=== PATIENT | female | born 1950 | race Caucasian/White ===

== ENCOUNTER 2017-03-05 13:24 | Observation (INO) | payer BC, MEDICARE, OTHER ==
--- NOTE | 2017-03-05 13:35 | ER Document Report ---
ED Medical Screen (RME) - General Chief Complaint: S/S of Possible Stroke Stated Complaint: ALTERED MENTAL STATUS Time Seen by Provider: 03/05/17 13:32 Mode of Arrival: Ambulatory Information source: Patient, Relative TRAVEL OUTSIDE OF THE [place] IN LAST 30 DAYS: No - HPI Patient complains to provider of: memory loss Onset: This morning - pt states she had no recollection of what she did this am (new for her) -- she denies extremity numbness or weakness, speech change, etc - Related Data Allergies/Adverse Reactions: risedronate sodium [From Actonel] Allergy (Verified 03/05/17 13:32) steriods Allergy (Uncoded 03/05/17 13:32) Past Medical History Renal/ Medical History: Denies: Hx Peritoneal Dialysis Past Surgical History: Reports: Hx Gynecologic Surgery Physical Exam - Vital signs Vitals: Temp Pulse Resp BP Pulse Ox 98.0 F 82 16 158/93 H 99 03/05/17 13:28 03/05/17 13:28 03/05/17 13:28 03/05/17 13:28 03/05/17 13:28 Course - Vital Signs Vital signs: Temp Pulse Resp BP Pulse Ox 98.0 F 82 16 158/93 H 99 03/05/17 13:28 03/05/17 13:28 03/05/17 13:28 03/05/17 13:28 03/05/17 13:28
[2017-03-05 14:11] LABS: ABSOLUTE MONOCYTES (AUTO) 0.5 10^3/uL (0.1-1.4); BASOPHILS % (AUTO) 0.4 % (0-2); EOSINOPHILS % (AUTO) 0.4 % (0-6); HEMATOCRIT 45.9 % (36.0-47.0); HEMOGLOBIN 15.1 g/dL (12.0-15.5); HGB HCT DIFFERENCE -0.6; LYMPHOCYTES % (AUTO) 12.2 % (13-45); MEAN CORPUSCULAR HEMOGLOBIN 30.3 pg (27.0-33.4); MEAN CORPUSCULAR VOLUME 92 fl (80-97); MONOCYTES % (AUTO) 5.4 % (3-13); RED CELL DISTRIBUTION WIDTH 13.3 % (11.5-14.0); SEGMENTED NEUTROPHILS % (AUTO) 81.6 % (42-78); WHITE BLOOD COUNT 8.6 10^3/uL (4.0-10.5)
--- NOTE | 2017-03-05 14:12 | ER Document Report ---
ED Neuro Symptoms/Deficit - General Chief Complaint: S/S of Possible Stroke Stated Complaint: ALTERED MENTAL STATUS Time Seen by Provider: 03/05/17 13:32 Mode of Arrival: Ambulatory Information source: Patient, Relative - spouse/daughter TRAVEL OUTSIDE OF THE [place] IN LAST 30 DAYS: No - HPI Patient complains to provider of: Other - Memory loss from [id number]. Memory has since returned. Now starting to have a mild/dull BAUM Onset: Just prior to arrival Awoke with symptoms: No Exact time of onset: 929 Duration: Gone now - resolved Quality of pain: Dull - start of BAUM Severity: Mild Pain Level: 1 Context: None Loss of consciousness: No loss of consciousness Was STROKE ALERT Called: No Baseline Cognitive: Alert, oriented X 3 Baseline Gait: Walks w/o assistance Pre-existing weakness: No: Face, General, Hand, Lower extremity, Upper extremity Alert To: Name/Voice Patient Orientation: Person, Place, Time, Events Character of altered mental status: No: Agitated, Confused, Combative, Decreased responsiveness, Disoriented, Seizure activity, Trouble concentrating, Unchanged from baseline, Unresponsive New weakness: denies: LUE, LLE, RUE, RLE, L facial, R facial, General (diffuse) Altered sensation: denies: LUE, LLE, RUE, RLE, L facial, R facial, General ( diffuse) Decreased ability to stand/walk: denies: Weak, Difficult, Off balance, Cannot walk, Cannot stand Vision problem/glaucoma: Yes - h/o glaucoma Associated symptoms: Headache. denies: Chest pain, Back pain, Chills, Dizzy, Falling injury, Fainting, Fever, Hurts to breathe, Involuntary movements, Lightheadedness, Nausea, Neck pain, Seizure, Short of breath, Sweaty, Vomiting, Other Similar symptoms previously: No Recently seen / treated by doctor: No Notes: Patient is a 66-year-old female with a history of ovarian cancer (in remission 2000), migraines, and glaucoma who presents to the ED with a period of memory loss prior to arrival. Patient is accompanied by her spouse and her daughter. Spouse states that from 0 932 about 1245 this morning patient was confused and could not remember things that she should have known. During that time, they did not notice any changes or slurring her speech, but she would get agitated easily because of the confusion. By 1245, her memory issues resolved and she was able to remember everything. Patient never had any trouble with her gait, nor did she experience any muscle weakness or paralysis. Patient states that now she is developing a dull headache. She denies any previous incidences with memory loss. She denies taking any p.o. medications, illicit drugs, or recent illness. Denies any trauma or fall. Denies any insect bite. Patient states that she has had a total hysterectomy and an appendectomy. No other surgical history. Denies any history of CVA, ID, diabetes, TIA, PE. Patient states that currently she feels well without any other concerns or complaints. - Related Data Allergies/Adverse Reactions: risedronate sodium [From Actonel] Allergy (Verified 03/05/17 13:32) steriods Allergy (Uncoded 03/05/17 13:32) Home Medications: Current Home Medications Aspirin/Acetaminophen/Caffeine [Excedrin Migraine Caplet] 1 tab-cap PO DAILY PRN 03/05/17 [History] Bimatoprost [Lumigan 0.01% Oph Soln 2.5 ml/Bottle] 1 drop BTH_EYE DAILY [History] Past Medical History - General Information source: Patient, Relative - Social History Smoking Status: Never Smoker Chew tobacco use (# tins/day): No Frequency of alcohol use: None Drug Abuse: None Family History: Reviewed & Not Pertinent Renal/ Medical History: Denies: Hx Peritoneal Dialysis Past Surgical History: Reports: Hx Cardiac Catheterization, Hx Gynecologic Surgery Review of Systems - Review of Systems Notes: REVIEW OF SYSTEMS: CONSTITUTIONAL : Denies fever, chills, or sweats. Denies recent illness. EENT: Denies eye, ear, throat, or mouth pain or symptoms. Denies nasal or sinus congestion or discharge. Denies throat, tongue, or mouth swelling or difficulty swallowing. CARDIOVASCULAR: Denies chest pain. Denies palpitations or racing or irregular heart beat. Denies ankle edema. RESPIRATORY: Denies cough, cold, or chest congestion. Denies shortness of breath, difficulty breathing, or wheezing. GASTROINTESTINAL: Denies abdominal pain or distention. Denies nausea, vomiting , or diarrhea. Denies blood in vomitus, stools, or per rectum. Denies black, tarry stools. Denies constipation. GENITOURINARY: Denies difficulty urinating, painful urination, burning, frequency, blood in urine, or discharge. MUSCULOSKELETAL: Denies back or neck pain or stiffness. Denies joint pain or swelling. SKIN: Denies rash, lesions or sores. HEMATOLOGIC : Denies easy bruising or bleeding. LYMPHATIC: Denies swollen, enlarged glands. NEUROLOGICAL: see hpi. Denies passing out or loss of consciousness. Denies dizziness or lightheadedness. Denies weakness or paralysis or loss of use of either side. Denies problems with gait or speech. Denies sensory loss, numbness, or tingling. Denies seizures. PSYCHIATRIC: Denies anxiety or stress. Denies depression, suicidal ideation, or homicidal ideation. ALL OTHER SYSTEMS REVIEWED AND NEGATIVE. Dictation was performed using [employer] voice recognition software Physical Exam - Vital signs Vitals: Temp Pulse Resp BP Pulse Ox 98.0 F 82 16 158/93 H 99 03/05/17 13:28 03/05/17 13:28 03/05/17 13:28 03/05/17 13:28 03/05/17 13:28 Notes: PHYSICAL EXAMINATION: GENERAL: Well-appearing, well-nourished and in no acute distress. A&Ox3 HEAD: Atraumatic, normocephalic. Non-tender. No garza sign EYES: Pupils equal round and reactive to light, extraocular movements intact, sclera anicteric, conjunctiva are normal. No raccoon eyes/entrapment ENT: TM's unremarkable w/o hemotympanum. Nares patent and without discharge. oropharynx clear without exudates. No tonsilar hypertrophy or erythema. Moist mucous membranes. No sinus tenderness. NECK: Normal range of motion, supple without lymphadenopathy. No rigidity. No midline tenderness. Spurling negative. Chest: No flail chest. equal rise/fall. Non-tender LUNGS: Breath sounds clear to auscultation bilaterally and equal. No wheezes rales or rhonchi. HEART: Regular rate and rhythm without murmurs, rubs, gallops. ABDOMEN: Soft, nontender, nondistended abdomen. No guarding, no rebound. No masses appreciated. Normal bowel sounds present. No CVA tenderness bilaterally. Musculoskeletal: Ext b/l: FROM to passive/active. Strength 5+/5. No deficits noted. No bony tenderness of extremities. Back: FROM to passive/active. Strength 5+/5. No vertebral point tenderness, stepoffs, or deformities. No other bony tenderness or ecchymosis. Extremities: No cyanosis, clubbing, or edema b/l. Peripheral pulses 2+. Capillary refill less than 2 seconds. NEUROLOGICAL: MMSE intact. Cranial nerves grossly intact. Normal speech, normal gait. Normal sensory, motor exams. Reflexes 2+ b/l. ROD's negative. Pronator drift negative. Heel/montoya, finger/nose wnl. Walking on heels/toes and heel to toe wnl. PSYCH: Normal mood, normal affect. SKIN: Warm, Dry, normal turgor, no rashes or lesions noted. Course - Re-evaluation Re-evalutation: 03/05/17 19:05 Patient is an afebrile, well-hydrated, 66-year-old female who presents to the ED with memory loss, suspect possible TIA vs seizure. Reviewed case with Dr. Jiménez who is in agreement with admit/plan. Patient's workup (CBC, CMP, Mag , UA, Urine drug, CT head, cardiac enzymes, CXR) was currently unremarkable for any acute pathology. Vitals are stable. PE otherwise unremarkable for any focal neurological deficits. Patient has no new concerns or complaints at this time. Reviewed case with the hospitalist, Dr. Chowdhury, who accepted the patient, and will perform a further evaluation. Patient is in agreement with admit/plan. - Vital Signs Vital signs: Temp Pulse Resp BP Pulse Ox 98.0 F 82 16 158/93 H 99 03/05/17 13:28 03/05/17 13:28 03/05/17 13:28 03/05/17 13:28 03/05/17 13:28 - Laboratory Result Diagrams: 03/05/17 13:55 03/05/17 15:18 ED NIH Stroke Scale - NIH Stroke Scale When completed:: Protocol *: 1. NIH scale should be completed with appropriate accompanying assessment tools. *: 2. The NIH should reflect what the patient is capable of doing and should not be coached by the clinician. 1a. Level of Consciousness: 0=Alert;keenly responsive -: 1=Drowsy -: 2=Obtunded -: 3=Coma/unresponsive or reflex to noxious stimuli. 1a. Responses: 0 1b. Orientation Questions: a. What month is it? -: b. How old are you? -: 0=Answers both questions correctly. -: 1=Answers one question correctly or patient is intubated or has orotracheal trauma. -: 2=Answers neither question correctly. 1b. Responses: 0 1c. Response to commands: a. Open and close eyes? -: b. Hand Clipper and release hand? -: Credit is given despite weakness. Demonstration of task is permitted. Substitute command if hands cannot be used. -: 0=Performs both tasks correctly -: 1=Performs one task correctly -: 2=Performs neither task correctly 1c. Responses: 0 2. Gaze: Establish eye contact and instruct patient to "Follow my finger" -: 0=Normal -: 1=Partial gaze palsy. Gaze is abnormal in one or both eyes, but where forced deviation or total gaze paresis is not present. -: 2=Forced deviation or total gaze paresis. 2. Responses: 0 3. Visual Scherer: Sees fingers in all four quadrants. -: 0=No visual loss. -: 1=Partial hemianopsia. -: 2=Complete hemianopsia. -: 3=Bilateral hemianopsia (including Cortical blindness) 3. Responses: 0 4. Facial Movement: Instruct patient to: -: a. Show me your teeth -: b. Raise your eyebrows -: c. Close your eyes -: d. Smile -: 0=Normal symmetrical movement -: 1=Minor paralysis (flattened nasolabial fold, asymmetry on smiling). -: 2=Partial paralysis (total or near total paralysis of lower face). -: 3=Complete paralysis of upper and lower face 4. Responses: 0 5. Motor functions (left arm): Alternate sides and extend each arm with palms down (90 degrees if sitting or 45 degrees for supine). -: 0=No drift;limb holds for full 10 seconds. -: 1=Drift; limb holds but drifts down before full 10 seconds, but does not hit bed. -: 2=Some effort against gravity; limb cannot get to or maintain position. -: 3=No effort against gravity; limb falls. -: 4=No movement. -: UN=Amputation, joint fusion, explain in comments. 5. Responses (left arm): 0 5. Motor Functions (right arm): Alternate sides and extend each arm with palms down (90 degrees if sitting or 45 degrees for supine). -: 0=No drift;limb holds for full 10 seconds. -: 1=Drift; limb holds but drifts down before full 10 seconds, but does not hit bed. -: 2=Some effort against gravity; limb cannot get to or maintain position. -: 3=No effort against gravity; limb falls. -: 4=No movement. -: UN=Amputation, joint fusion, explain in comments. 5. Responses (right arm): 0 6. Motor Functions (left leg): With patient lying supine, alternate sides and extend each leg (30 degrees always while supine). -: 0=No drift, leg holds position for full 5 seconds -: 1=Drift; leg falls before full 5 seconds but does not hit bed. -: 2=Some effort against gravity, leg falls to bed but some effort against gravity. -: 3=No effort against gravity, leg falls to bed immediately. -: 4=No movement. -: UN=Amputation, joint fusion; explain in comments. 6. Responses (left leg): 0 6. Motor Functions (right leg): With patient lying supine, alternate sides and extend each leg (30 degrees always while supine). -: 0=No drift, leg holds position for full 5 seconds -: 1=Drift; leg falls before full 5 seconds but does not hit bed. -: 2=Some effort against gravity, leg falls to bed but some effort against gravity. -: 3=No effort against gravity, leg falls to bed immediately. -: 4=No movement. -: UN=Amputation, joint fusion; explain in comments. 6. Responses (right leg): 0 7. Limb Ataxia: With eyes open instruct patient to: -: a. "Touch your finger to your nose". -: b. "Touch your heel to your montoya" -: 0=Absent -: 1=Present in one limb. -: 2=Present in two limbs. -: UN=Amputation or joint fusion; explain in comments. 7. Responses: 0 8. Sensory: Test sensation using pinprick or noxious stimuli. Test as many body parts as possible. -: 0=Normal;no sensory loss -: 1=Mile to moderate sensory loss (patient feels pin prick but is less sharp on affected side). -: 2=Severe or total sensory loss. 8. Responses: 0 9. Best Language: Instruct patient to: -: a. "Describe what you see in this picture." -: b. "Name the items in this picture." -: c. "Read these sentences." -: 0=No aphasia, normal -: 1=Mild to moderate aphasia. -: 2=Severe aphasia -: 3=Mute, global aphasia, no usable speech or auditory comprehension. 9. Responses: 0 10. Articulation, Dysarthia: Instruct patient to: -: "Read these words" or "Repeat these words" -: 0=Normal -: 1=Mild to moderate; patient may slur some words but can be understood without difficulty. -: 2=Severe; patients speech so slurred as to be unintelligible in the absence of dysphasia. -: UN=Intubated or other physical barrier, explain in comments. 10. Responses: 0 11. Extinction or inattention: 0=No abnormality -: 1= Visual, tactile, auditory, spatial, or personal inattention or extinction to bilateral simulation in one or the sensory modalities. -: 2=Profound haseeb-inattention or haseeb-inattention to more than one modality; does not recognize own hand. 11. Responses: 0 Total Score: 0 Discharge - Discharge Clinical Impression: Memory loss of unknown cause Condition: Stable Disposition: ADMITTED INPATIENT Admitting Provider: Hospitalist - Dr. Chowdhury Unit Admitted: Telemetry
[2017-03-05 14:50] LABS: APPEARANCE,URINE CLEAR; BILIRUBIN,URINE NEGATIVE (NEGATIVE); GLUCOSE, URINE NEGATIVE (NEGATIVE); KETONES,URINE NEGATIVE (NEGATIVE); LEUKOCYTE ESTERASE,URINE NEGATIVE (NEGATIVE); NITRITE,URINE NEGATIVE (NEGATIVE); PROTEIN,URINE NEGATIVE (NEGATIVE); URINE SPECIFIC GRAVITY 1.016; UROBILINOGEN,URINE NEGATIVE mg/dL (<2.0)
[2017-03-05 15:07] LABS: URINE BARBITURATES SCREEN NEGATIVE; URINE METHADONE SCREEN NEGATIVE; URINE OPIATES LOW NEGATIVE; URINE PHENCYCLIDINE SCREEN NEGATIVE
--- NOTE | 2017-03-05 15:11 | RADIOLOGY REPORT (SQ) ---
EXAM DESCRIPTION: CT HEAD WITHOUT COMPLETED DATE/TIME: 03/05/2017 3:00 pm REASON FOR STUDY: mental status change COMPARISON: None. TECHNIQUE: Axial images acquired through the brain without intravenous contrast. Images reviewed wi th bone, brain and subdural windows. Images stored on PACS. All CT scanners at this facility use dose modulation, iterative reconstruction, and/or weight based d osing when appropriate to reduce radiation dose to as low as reasonably achievable (ALARA). [facility]: Dose Right [facility]: CareDose [facility]: Dose Right [facility]: Teradose 4D [facility]: Smart Fididel RADIATION DOSE: Up-to-date CT equipment and radiation dose reduction techniques were employed. CTDIv ol: 64.6 mGy. DLP: 1163 mGy-cm. mGy. LIMITATIONS: None. FINDINGS: VENTRICLES: Normal size and contour. CEREBRUM: No masses. No hemorrhage. No midline shift. No evidence for acute infarction. Normal gra y/white matter differentiation. No areas of low density in the white matter. CEREBELLUM: No masses. No hemorrhage. No alteration of density. No evidence for acute infarction. EXTRAAXIAL SPACES: No fluid collections. No masses. ORBITS AND GLOBE: No intra- or extraconal masses. Normal contour of globe without masses. CALVARIUM: No fracture. PARANASAL SINUSES: No fluid or mucosal thickening. SOFT TISSUES: No mass or hematoma. OTHER: No other significant finding. IMPRESSION: NORMAL BRAIN CT WITHOUT CONTRAST. COMMENT: Quality ID # [id number]: Final reports with documentation of one or more dose reduction techniques (e.g., Automated exposure control, adjustment of the mA and/or kV according to patient size, use of iterative reconstruction technique) TECHNICAL DOCUMENTATION: JOB ID: [id number]- All Rights Reserved
--- NOTE | 2017-03-05 15:35 | RADIOLOGY REPORT (SQ) ---
EXAM DESCRIPTION: CHEST SINGLE VIEW COMPLETED DATE/TIME: 03/05/2017 2:56 pm REASON FOR STUDY: AMS COMPARISON: 2014. NUMBER OF VIEWS: One view. TECHNIQUE: Single frontal radiographic view of the chest acquired. LIMITATIONS: None. FINDINGS: LUNGS AND PLEURA: No opacities, masses or pneumothorax. No pleural effusion. MEDIASTINUM AND HILAR STRUCTURES: No masses. Contour normal. HEART AND VASCULAR STRUCTURES: Heart normal in size. Normal vasculature. BONES: No acute findings. HARDWARE: None in the chest. OTHER: No other significant finding. IMPRESSION: NO SIGNIFICANT RADIOGRAPHIC FINDING IN THE CHEST. TECHNICAL DOCUMENTATION: JOB ID: [id number] [employer]- All Rights Reserved
[2017-03-05 15:48] LABS: PROTHROMBIN TIME 12.8 SEC (11.4-15.4)
[2017-03-05 15:49] LABS: PARTIAL THROMBOPLASTIN TIME 27.1 SEC (23.5-35.8)
[2017-03-05 15:53] LABS: ALANINE AMINOTRANSFERASE 26 U/L (9-52); ALBUMIN 4.2 g/dL (3.5-5.0); ALKALINE PHOSPHATASE 101 U/L (38-126); ANION GAP 13 (5-19); ASPARTATE AMINO TRANSFERASE 20 U/L (14-36); BILIRUBIN,DIRECT 0.3 mg/dL (0.0-0.4); BILIRUBIN,TOTAL 0.5 mg/dL (0.2-1.3); BLOOD UREA NITROGEN 21 mg/dL (7-20); CALCIUM 9.8 mg/dL (8.4-10.2); CARBON DIOXIDE 24 mmol/L (22-30); CHLORIDE 107 mmol/L (98-107); CREATINE KINASE 84 U/L (30-135); CREATININE RESULT 0.75 mg/dL (0.52-1.25); GLUCOSE 106 mg/dL (75-110); POTASSIUM 4.2 mmol/L (3.6-5.0); SODIUM 143.5 mmol/L (137-145); TOTAL PROTEIN 6.9 g/dL (6.3-8.2)
[2017-03-05 16:05] LABS: TROPONIN I < 0.012 ng/mL
[2017-03-05] MEDS ORDERED: NORMAL SALINE 1000 ML 1,000 ML IV ONE (16:19)
[2017-03-05] MEDS ORDERED: ONDANSETRON 4 MG TAB.RAPDIS PO PRN (17:38)
[2017-03-05] MEDS ORDERED: ACETAMINOPHEN 325 MG TABLET PO PRN (17:38)
[2017-03-05] MEDS ORDERED: [UNRECOGNIZED DRUG - OTHER] PO PRN (17:46)
[2017-03-05] MEDS ORDERED: CAFFEINE PO PRN (17:46)
[2017-03-05] MEDS ORDERED: ASPIRIN PO PRN (17:46)
[2017-03-05] MEDS ORDERED: ACETAMINOPHEN PO PRN (17:46)
--- NOTE | 2017-03-05 18:31 | PDOC H&P ---
History of Present Illness Admission Date/PCP: 03/05/17 17:23 Patient complains of: Confusion History of Present Illness: ANETTE THOMPSON is a 66 year old female presents with complaint of episode of confusion. Patient reports that she woke up this morning and went to the grocery store where she purchased food. Patient states that when she got home she was carrying in groceries bags in place and purchased items into cabinet. Patient states that approximately around 10:00 she does not remember the events that occurred. Patient states that her reported that she was tearing out the back door and then he reports that she walked outside and played with a neighbor's dog. Family also reported that patient came back into the house and asked if they have a dog. Patient reports that they have had a dog for the last several years who sleeps in bed with them. Patient also reports the family stated that she then took a shower. Patient reports that family denies any change in speech or gait. Patient did report that she did have a migraine earlier that day and took Excedrin Migraine. Patient states that she caught her migraine early and she does have a long history of having migraines. Patient reports that she has never had an episode like this when having a migraine. Past Medical History Cardiac Medical History: Reports: Other - Ovarian Cancer Glaucoma Pulmonary Medical History: Reports: None EENT Medical History: Reports: None Neurological Medical History: Reports: Migraine Endocrine Medical History: Reports: None Renal/ Medical History: Reports: None Malignancy Medical History: Reports: Ovarian Cancer - Status post chemo and surgery GI Medical History: Reports: None Musculoskeltal Medical History: Reports: None Skin Medical History: Reports: None Psychiatric Medical History: Reports: None Traumatic Medical History: Reports: None Hematology: Reports: None Infectious Medical History: Reports: None Past Surgical History Past Surgical History: Reports: Cardiac Catheterization, Hysterectomy, Tonsillectomy Social History Smoking Status: Never Smoker Family History Family History: Reviewed & Not Pertinent Parental Family History Reviewed: Yes Children Family History Reviewed: Yes Sibling(s) Family History Reviewed.: Yes Medication/Allergy Home Medications: Aspirin/Acetaminophen/Caffeine [Excedrin Migraine Caplet] 1 tab-cap PO DAILY PRN 03/05/17 Bimatoprost [Lumigan 0.01% Oph Soln 2.5 ml/Bottle] 1 drop BTH_EYE DAILY Allergies/Adverse Reactions: risedronate sodium [From Actonel] Allergy (Verified 03/05/17 13:32) steriods Allergy (Uncoded 03/05/17 13:32) Review of Systems Constitutional: ABSENT: chills, fever(s), headache(s), weight gain, weight loss Eyes: ABSENT: visual disturbances Ears: ABSENT: hearing changes Cardiovascular: ABSENT: chest pain, dyspnea on exertion, edema, orthropnea, palpitations Respiratory: ABSENT: cough, hemoptysis Gastrointestinal: ABSENT: abdominal pain, constipation, diarrhea, hematemesis, hematochezia, nausea, vomiting Genitourinary: ABSENT: dysuria, hematuria Musculoskeletal: ABSENT: joint swelling Integumentary: ABSENT: rash, wounds Neurological: PRESENT: memory loss, other - Headache Psychiatric: ABSENT: anxiety, depression, homidical ideation, suicidal ideation Endocrine: ABSENT: cold intolerance, heat intolerance, polydipsia, polyuria Hematologic/Lymphatic: ABSENT: easy bleeding, easy bruising Physical Exam Vital Signs: Temp Pulse Resp BP Pulse Ox 98.0 F 75 11 L 148/96 H 96 03/05/17 13:28 03/05/17 14:05 03/05/17 16:01 03/05/17 16:01 03/05/17 16:01 General appearance: PRESENT: no acute distress, well-developed, well-nourished Head exam: PRESENT: atraumatic, normocephalic Eye exam: PRESENT: conjunctiva pink, EOMI. ABSENT: scleral icterus Ear exam: PRESENT: normal external ear exam Mouth exam: PRESENT: moist, tongue midline Neck exam: ABSENT: carotid bruit, JVD, lymphadenopathy, thyromegaly Respiratory exam: PRESENT: clear to auscultation yeyo. ABSENT: rales, rhonchi, wheezes Cardiovascular exam: PRESENT: RRR. ABSENT: diastolic murmur, rubs, systolic murmur Pulses: PRESENT: normal dorsalis pedis pul Vascular exam: PRESENT: normal capillary refill GI/Abdominal exam: PRESENT: normal bowel sounds, soft. ABSENT: distended, guarding, mass, organolmegaly, rebound, tenderness Rectal exam: PRESENT: deferred Extremities exam: PRESENT: full ROM. ABSENT: calf tenderness, clubbing, pedal edema Musculoskeletal exam: PRESENT: ambulatory, deformity, dislocation, full ROM, normal inspection, tenderness, other Neurological exam: PRESENT: alert, awake, oriented to person, oriented to place , oriented to time, oriented to situation, CN II-XII grossly intact. ABSENT: motor sensory deficit Psychiatric exam: PRESENT: appropriate affect, normal mood. ABSENT: homicidal ideation, suicidal ideation Skin exam: PRESENT: dry, intact, warm. ABSENT: cyanosis, rash Results Impressions: Head CT 03/05/17 13:32 IMPRESSION: NORMAL BRAIN CT WITHOUT CONTRAST. Chest X-Ray 03/05/17 14:05 IMPRESSION: NO SIGNIFICANT RADIOGRAPHIC FINDING IN THE CHEST. Assessment & Plan - Diagnosis (1) Acute confusional state of metabolic origin Is this a current diagnosis for this admission?: Yes Plan: Patient reports that she had a migraine earlier today that she took Excedrin Migraine for. Patient reports having a loss of memory from 10-230. Patient could have had a complex migraine. However will do complete evaluation to rule out other causes. Will check MRI, carotids, 2D echo, and EEG. We will place consult for neurology. Check patient's lipid profile and TSH. (2) TIA (transient ischemic attack) Is this a current diagnosis for this admission?: Yes Plan: We will obtain MRI. TIA is most likely not the cause of patient's acute onset. Patient experienced no motor skill loss. Patient was ambulating and communicating with family but has no memory of conversations. (3) Memory loss of unknown cause Is this a current diagnosis for this admission?: Yes Plan: We will continue current evaluation the studies mentioned above. Think that patient's presentation is most likely secondary to complex migraine. (4) Migraine Qualifiers: Migraine type: unspecified Is this a current diagnosis for this admission?: Yes Plan: She reports that she had a migraine early this morning and took Excedrin Migraine. This is presentation could be consistent with complex migraine. (5) Essential hypertension Is this a current diagnosis for this admission?: Yes Plan: She reports that she does not have history of high blood pressure. Will monitor patient's blood pressure here during hospital stay. Blood pressure remains elevated will place on antihypertensives. (6) Ovarian cancer Qualifiers: Laterality: unspecified laterality Qualified Code(s): C56.9 - Malignant neoplasm of unspecified ovary Is this a current diagnosis for this admission?: Yes Plan: She has history of ovarian cancer that was treated. (7) DVT prophylaxis Is this a current diagnosis for this admission?: Yes Plan: SCDs - Time Time Spent: 30 to 50 Minutes
--- NOTE | 2017-03-05 20:16 | EKG REPORT ---
SEVERITY:- ABNORMAL ECG - SINUS RHYTHM NONSPECIFIC ST-T CHANGES- INFERIORLATERAL LEADS : Confirmed by: Porter Palmer MD 05-Mar-2017 20:16:02
--- NOTE | 2017-03-05 20:33 | RADIOLOGY REPORT (SQ) ---
EXAM DESCRIPTION: MRI HEAD WITHOUT COMPLETED DATE/TIME: 03/05/2017 6:39 pm REASON FOR STUDY: Altered Mental Status COMPARISON: Noncontrast head CT 03/05/2017 TECHNIQUE: Multiplanar imaging includes non-contrasted T1, T2, FLAIR, and Diffusion with ADC map seq uences. Images stored on PACS. LIMITATIONS: None. FINDINGS: ANATOMY: No anomalies. Normal vascular flow voids. Pituitary fossa normal. CSF SPACES: Normal in size and contour. No hemorrhage. CEREBRUM: A few high-signal intensity lesions scattered throughout the white matter on FLAIR imaging with distribution suggesting chronic micro-vascular ischemic change. Sulci and gyri normal in size a nd contour. No evidence of hemorrhage, mass or extraaxial fluid collection. POSTERIOR FOSSA: No signal alteration. No hemorrhage. No edema, masses or mass effect. Internal barb tory canals, cerebello-pontine angles, mastoids normal. DIFFUSION: Negative for acute or sub-acute infarction. ORBITS: No masses. Globes normal. PARANASAL SINUSES: No fluid levels. Mucosa normal. OTHER: No other significant finding. IMPRESSION: MINIMAL MICROVASCULAR ISCHEMIC CHANGE. OTHERWISE NORMAL STUDY. EVIDENCE OF ACUTE STROKE: NO. TECHNICAL DOCUMENTATION: JOB ID: [id number] [employer]- All Rights Reserved
[2017-03-05] MEDS: FAMOTIDINE 20 MG TABLET PO SCH (21:57)
[2017-03-06 05:04] LABS: ABSOLUTE EOSINOPHILS # (AUTO) 0.1 10^3/uL (0.0-0.6); ABSOLUTE LYMPHOCYTES (AUTO) 1.6 10^3/uL (0.5-4.7); ABSOLUTE MONOCYTES (AUTO) 0.5 10^3/uL (0.1-1.4); ABSOLUTE NEUT (AUTO) 3.4 10^3/uL (1.7-8.2); BASOPHILS % (AUTO) 0.6 % (0-2); EOSINOPHILS % (AUTO) 2.2 % (0-6); HEMATOCRIT 40.1 % (36.0-47.0); HEMOGLOBIN 13.8 g/dL (12.0-15.5); HGB HCT DIFFERENCE 1.3; LYMPHOCYTES % (AUTO) 27.9 % (13-45); MEAN CORPUSCULAR HEMOGLOBIN 31.2 pg (27.0-33.4); MEAN CORPUSCULAR HGB CONC 34.3 g/dL (32.0-36.0); MEAN CORPUSCULAR VOLUME 91 fl (80-97); MONOCYTES % (AUTO) 9.5 % (3-13); RED BLOOD COUNT 4.42 10^6/uL (3.72-5.28); RED CELL DISTRIBUTION WIDTH 13.5 % (11.5-14.0); SEGMENTED NEUTROPHILS % (AUTO) 59.8 % (42-78); WHITE BLOOD COUNT 5.6 10^3/uL (4.0-10.5)
[2017-03-06 05:15] LABS: ANION GAP 10 (5-19); BLOOD UREA NITROGEN 20 mg/dL (7-20); CALCIUM 9.2 mg/dL (8.4-10.2); CARBON DIOXIDE 27 mmol/L (22-30); CHLORIDE 107 mmol/L (98-107); CHOLESTEROL 190.62 mg/dL (0-200); CREATININE RESULT 0.75 mg/dL (0.52-1.25); Direct HDL 36 mg/dL (>40); GLUCOSE 97 mg/dL (75-110); SODIUM 143.5 mmol/L (137-145); TRIGLYCERIDES 68 mg/dL (<150)
[2017-03-06 05:26] LABS: DIRECT LDL 135 mg/dL (<100)
--- NOTE | 2017-03-06 08:07 | EKG REPORT ---
SEVERITY:- NORMAL ECG - SINUS RHYTHM : Confirmed by: Porter Palmer MD 06-Mar-2017 08:06:43
[2017-03-06] MEDS ORDERED: ASPIRIN 81 MG TABLET, CHEWABLE PO SCH (10:00)
[2017-03-06] MEDS ORDERED: BIMATOPROST 0.01% OPH SOLN 2.5 ML/BOTTLE OU SCH (10:00)
[2017-03-06] MEDS: FAMOTIDINE 20 MG TABLET PO SCH (10:28)
--- NOTE | 2017-03-06 11:58 | PDOC DISCHARGE SUMMARY ---
General - Admit/Disc Date/PCP Admission Date/Primary Care Provider: 03/05/17 17:38 Discharge Date: 03/06/17 - Discharge Diagnosis (1) Acute confusional state of metabolic origin Is this a current diagnosis for this admission?: Yes Summary: Most likely secondary to complex migraine. CT of head and MRI were normal. Patient never had any motor or speech deficits with this episode. (2) TIA (transient ischemic attack) Is this a current diagnosis for this admission?: Yes Summary: Ruled out. Most likely secondary to complex migraine. Patient recommended to take baby aspirin until pt has seen neuro (3) Memory loss of unknown cause Is this a current diagnosis for this admission?: Yes Summary: Most likely secondary to complex migraine. (4) Migraine Is this a current diagnosis for this admission?: Yes Summary: Complex migraine: Patient currently Migraine free. Patient told to continue using Excedrin Migraine as needed. (5) Essential hypertension Is this a current diagnosis for this admission?: Yes Summary: We will place patient on lisinopril 10 mg p.o. daily. Patient will need to follow-up with PCP. (6) Ovarian cancer Is this a current diagnosis for this admission?: Yes Summary: supportive care. Pt has completed treatment. (7) Hyperlipidemia Is this a current diagnosis for this admission?: Yes Summary: We will place patient on pravastatin 20 mg p.o. q. at bedtime. Patient will need to follow-up with PCP. Patient will need to have repeat lipid profile in 4 -6 weeks. - Additional Information Discharge Diet: Cardiac Discharge Activity: Activity As Tolerated Home Medications: Bimatoprost [Lumigan 0.01% Oph Soln 2.5 ml/Bottle] 1 drop OU QHS 03/05/17 Aspirin [Aspirin 81 mg Chewable Tablet] 81 mg PO DAILY tab.chew 03/06/17 Lisinopril 10 mg PO DAILY #30 tablet 03/06/17 Pravastatin Sodium 20 mg PO QHS #30 tablet 03/06/17 History of Present Illness History of Present Illness: ANETTE THOMPSON is a 66 year old female presents with complaint of episode of confusion. Patient reports that she woke up this morning and went to the grocery store where she purchased food. Patient states that when she got home she was carrying in groceries bags in place and purchased items into cabinet. Patient states that approximately around 10:00 she does not remember the events that occurred. Patient states that her reported that she was tearing out the back door and then he reports that she walked outside and played with a neighbor's dog. Family also reported that patient came back into the house and asked if they have a dog. Patient reports that they have had a dog for the last several years who sleeps in bed with them. Patient also reports the family stated that she then took a shower. Patient reports that family denies any change in speech or gait. Patient did report that she did have a migraine earlier that day and took Excedrin Migraine. Patient states that she caught her migraine early and she does have a long history of having migraines. Patient reports that she has never had an episode like this when having a migraine. Hospital Course Hospital Course: 66-year-old female that was admitted to the hospital due to memory loss. Patient had a CT and MRI that demonstrated no acute findings. Per patient and family patient had no speech or motor skill loss during episode. Patient had reported having a migraine earlier that day which she had taken medicine for. Patient was found to have essential hypertension at time of admission and therefore placed on lisinopril. Patient was also found to have mild hyperlipidemia and therefore was placed on statin. Patient was told that she would need to follow-up with neurology as outpatient. Patient was also told that she will need to see her PCP within 1 week and have 2D echo and carotid status outpatient. Patient was told to return if she experiences chest pain shortness of breath or confusion. Physical Exam Vital Signs: Temp Pulse Resp BP Pulse Ox 97.8 F 62 16 131/74 H 100 03/06/17 07:53 03/06/17 07:53 03/06/17 07:53 03/06/17 07:53 03/06/17 07:53 Intake & Output 03/05/17 03/06/17 03/07/17 06:59 06:59 06:59 Intake Total 600 Balance 600 Weight 70.9 kg General appearance: PRESENT: no acute distress, well-developed, well-nourished Head exam: PRESENT: atraumatic, normocephalic Eye exam: PRESENT: conjunctiva pink, EOMI. ABSENT: scleral icterus Ear exam: PRESENT: normal external ear exam Mouth exam: PRESENT: moist, tongue midline Neck exam: ABSENT: carotid bruit, JVD, lymphadenopathy, thyromegaly Respiratory exam: PRESENT: clear to auscultation yeyo. ABSENT: rales, rhonchi, wheezes Cardiovascular exam: PRESENT: RRR. ABSENT: diastolic murmur, rubs, systolic murmur Pulses: PRESENT: normal dorsalis pedis pul Vascular exam: PRESENT: normal capillary refill GI/Abdominal exam: PRESENT: normal bowel sounds, soft. ABSENT: distended, guarding, mass, organolmegaly, rebound, tenderness Rectal exam: PRESENT: deferred Extremities exam: PRESENT: full ROM. ABSENT: calf tenderness, clubbing, pedal edema Neurological exam: PRESENT: alert, awake, oriented to person, oriented to place , oriented to time, oriented to situation, CN II-XII grossly intact. ABSENT: motor sensory deficit Psychiatric exam: PRESENT: appropriate affect, normal mood. ABSENT: homicidal ideation, suicidal ideation Skin exam: PRESENT: dry, intact, warm. ABSENT: cyanosis, rash Results Laboratory Results: 03/06/17 04:26 03/06/17 04:26 03/06/17 03/06/17 04:26 04:26 WBC 5.6 RBC 4.42 Hgb 13.8 Hct 40.1 MCV 91 MCH 31.2 MCHC 34.3 RDW 13.5 Plt Count 173 Seg Neutrophils % 59.8 Lymphocytes % 27.9 Monocytes % 9.5 Eosinophils % 2.2 Basophils % 0.6 Absolute Neutrophils 3.4 Absolute Lymphocytes 1.6 Absolute Monocytes 0.5 Absolute Eosinophils 0.1 Absolute Basophils 0.0 Sodium 143.5 Potassium 4.0 Chloride 107 Carbon Dioxide 27 Anion Gap 10 BUN 20 Creatinine 0.75 Est GFR ( Amer) > 60 Est GFR (Non-Af Amer) > 60 Glucose 97 Calcium 9.2 Triglycerides 68 Cholesterol 190.62 LDL Cholesterol Direct 135 H VLDL Cholesterol 14.0 HDL Cholesterol 36 L Impressions: Head MRI 03/05/17 00:00 IMPRESSION: MINIMAL MICROVASCULAR ISCHEMIC CHANGE. OTHERWISE NORMAL STUDY. EVIDENCE OF ACUTE STROKE: NO. Head CT 03/05/17 13:32 IMPRESSION: NORMAL BRAIN CT WITHOUT CONTRAST. Chest X-Ray 03/05/17 14:05 IMPRESSION: NO SIGNIFICANT RADIOGRAPHIC FINDING IN THE CHEST.
[2017-03-06 12:23] VITALS: BP 131/72
== END 2017-03-06 12:40 | disposition home or self-care (01) ==
LOC: ER 13:24 → EH 17:23 → UNDOADMOB 17:23 → INTOOBSV 17:23 → EH 17:38 → 3N 18:57
DX: G45.9 Transient cerebral ischemic attack, unspecified (principal); R41.3 Other amnesia; G43.109 Migraine with aura, not intractable, without status migrainosus; I10 Essential (primary) hypertension; E78.5 Hyperlipidemia, unspecified; C56.9 Malignant neoplasm of unspecified ovary
CPT/HCPCS: 93005 ×2; 99285; 36415 ×2; 82553; 82550; 84443; 85025 ×2; 85610; 85730; 80048; 80053; 81001; 84484; 80307; 80061; 70551; 71010; 70450; 93010 ×2; G0378 ×3; A9270 ×3; J7030

== ENCOUNTER → 2017-03-17 | Outpatient (CLI) | payer OTHER ==
--- NOTE | 2017-03-17 14:08 | RADIOLOGY REPORT (SQ) ---
EXAM DESCRIPTION: CAROTID DOPPLER COMPLETED DATE/TIME: 03/17/2017 1:23 pm REASON FOR STUDY: AMNESIA R41.3 OTHER AMNESIA COMPARISON: None. TECHNIQUE: Grayscale ultrasound, Doppler velocity and spectra, and color Doppler images acquired of the extra-cranial carotid and vertebral arteries. Images stored on PACS. LIMITATIONS: None. FINDINGS: RIGHT CAROTID CCA Velocities: Within normal limits. ICA Velocities Peak systolic 87cm/s. End diastolic 34cm/s. Proximal ICA/CCA peak systolic ratio 1.03. Spectra normal. No significant plaque. LEFT CAROTID CCA Velocities: Within normal limits. ICA Velocities Peak systolic 103cm/s. End diastolic 41 cm/s. Proximal ICA/CCA peak systolic ratio 1.3. Spectra normal. No significant plaque. VERTEBRAL ARTERIES: Antegrade flow. Normal waveforms. SUBCLAVIAN ARTERIES: No finding. OTHER: No other significant finding. IMPRESSION: NO HEMODYNAMICALLY SIGNIFICANT STENOSIS. COMMENT: Quality ID #[id number]: Velocity criteria are extrapolated from the diameter data as defined by t he Society of Radiologists in Ultrasound Consensus Conference. Radiology 2003: 229; 340-346. TECHNICAL DOCUMENTATION: JOB ID: [id number] [employer]- All Rights Reserved
== END ==
LOC: SP 12:40
PROVIDERS: ATTEND Internal Medicine
DX: R41.3 Other amnesia (principal)
CPT/HCPCS: 93880

== ENCOUNTER 2017-04-06 19:11 | Emergency (ER) | payer OTHER ==
--- NOTE | 2017-04-06 19:53 | ER Document Report ---
ED Medical Screen (RME) - General Chief Complaint: Altered Mental Status Stated Complaint: POSSIBLE LOSS OF MEMORY Time Seen by Provider: 04/06/17 19:46 Notes: Patient presents had memory loss today after a stressful episode. They state that one month ago patient had a stressful episode and also had memory loss. Workup at that time was unremarkable. Family doctor has informed the patient that he does not believe it was due to a complex migraine or TIA but that he was going to refer her to neurology. TRAVEL OUTSIDE OF THE [place] IN LAST 30 DAYS: No - Related Data Allergies/Adverse Reactions: risedronate sodium [From Actonel] Allergy (Verified 04/06/17 19:17) steriods Allergy (Uncoded 03/05/17 13:32) Past Medical History Neurological Medical History: Reports: Hx Migraine Renal/ Medical History: Denies: Hx Peritoneal Dialysis Malignancy Medical History: Reports: Hx Ovarian Cancer - Status post chemo and surgery Psychiatric Medical History: Denies: Hx Depression Past Surgical History: Reports: Hx Cardiac Catheterization, Hx Gynecologic Surgery, Hx Hysterectomy, Hx Tonsillectomy Physical Exam - Vital signs Vitals: Temp Pulse Resp BP Pulse Ox 98.6 F 88 16 162/82 H 100 04/06/17 19:13 04/06/17 19:13 04/06/17 19:13 04/06/17 19:13 04/06/17 19:13 Course - Vital Signs Vital signs: Temp Pulse Resp BP Pulse Ox 98.6 F 88 16 162/82 H 100 04/06/17 19:13 04/06/17 19:13 04/06/17 19:13 04/06/17 19:13 04/06/17 19:13
--- NOTE | 2017-04-06 20:25 | RADIOLOGY REPORT (SQ) ---
EXAM DESCRIPTION: CT HEAD WITHOUT COMPLETED DATE/TIME: 04/06/2017 8:02 pm REASON FOR STUDY: ams COMPARISON: 03/05/2017 TECHNIQUE: Axial images acquired through the brain without intravenous contrast. Images reviewed wi th bone, brain and subdural windows. Images stored on PACS. All CT scanners at this facility use dose modulation, iterative reconstruction, and/or weight based d osing when appropriate to reduce radiation dose to as low as reasonably achievable (ALARA). [facility]: Dose Right [facility]: CareDose [facility]: Dose Right [facility]: Teradose 4D [facility]: [employer] RADIATION DOSE: Up-to-date CT equipment and radiation dose reduction techniques were employed. CTDIv ol: 64.6 mGy. DLP: 1163 mGy-cm. mGy. LIMITATIONS: None. FINDINGS: VENTRICLES: Normal size and contour. CEREBRUM: No masses. No hemorrhage. No midline shift. No evidence for acute infarction. Normal gra y/white matter differentiation. CEREBELLUM: No masses. No hemorrhage. No alteration of density. No evidence for acute infarction. EXTRAAXIAL SPACES: No fluid collections. No masses. ORBITS AND GLOBE: No intra- or extraconal masses. Normal contour of globe without masses. CALVARIUM: No fracture. PARANASAL SINUSES: No fluid or mucosal thickening. SOFT TISSUES: No mass or hematoma. OTHER: No other significant finding. IMPRESSION: No acute intracranial findings. EVIDENCE OF ACUTE STROKE: NO. COMMENT: Quality ID # [id number]: Final reports with documentation of one or more dose reduction techniques (e.g., Automated exposure control, adjustment of the mA and/or kV according to patient size, use of iterative reconstruction technique) TECHNICAL DOCUMENTATION: JOB ID: [id number]- All Rights Reserved
[2017-04-06 20:58] LABS: ABSOLUTE LYMPHOCYTES (AUTO) 1.2 10^3/uL (0.5-4.7); ABSOLUTE MONOCYTES (AUTO) 0.5 10^3/uL (0.1-1.4); ABSOLUTE NEUT (AUTO) 8.4 10^3/uL (1.7-8.2); BASOPHILS % (AUTO) 0.3 % (0-2); EOSINOPHILS % (AUTO) 0.1 % (0-6); HEMATOCRIT 45.2 % (36.0-47.0); HEMOGLOBIN 15.4 g/dL (12.0-15.5); LYMPHOCYTES % (AUTO) 12.2 % (13-45); MEAN CORPUSCULAR HEMOGLOBIN 30.8 pg (27.0-33.4); MEAN CORPUSCULAR VOLUME 90 fl (80-97); MONOCYTES % (AUTO) 4.8 % (3-13); RED CELL DISTRIBUTION WIDTH 13.3 % (11.5-14.0); SEGMENTED NEUTROPHILS % (AUTO) 82.6 % (42-78); WHITE BLOOD COUNT 10.2 10^3/uL (4.0-10.5)
[2017-04-06 21:03] LABS: APPEARANCE,URINE CLEAR; BILIRUBIN,URINE NEGATIVE (NEGATIVE); GLUCOSE, URINE NEGATIVE (NEGATIVE); KETONES,URINE NEGATIVE (NEGATIVE); LEUKOCYTE ESTERASE,URINE TRACE (NEGATIVE); NITRITE,URINE NEGATIVE (NEGATIVE); PROTEIN,URINE NEGATIVE (NEGATIVE); URINE SPECIFIC GRAVITY 1.004; UROBILINOGEN,URINE NEGATIVE mg/dL (<2.0)
[2017-04-06 21:04] LABS: ALANINE AMINOTRANSFERASE 34 U/L (9-52); ALBUMIN 4.9 g/dL (3.5-5.0); ALKALINE PHOSPHATASE 103 U/L (38-126); ANION GAP 16 (5-19); ASPARTATE AMINO TRANSFERASE 25 U/L (14-36); BILIRUBIN,DIRECT 0.3 mg/dL (0.0-0.4); BILIRUBIN,TOTAL 0.5 mg/dL (0.2-1.3); BLOOD UREA NITROGEN 27 mg/dL (7-20); CALCIUM 10.1 mg/dL (8.4-10.2); CARBON DIOXIDE 26 mmol/L (22-30); CHLORIDE 104 mmol/L (98-107); CREATININE RESULT 0.94 mg/dL (0.52-1.25); GLUCOSE 115 mg/dL (75-110); POTASSIUM 4.5 mmol/L (3.6-5.0); SODIUM 146.2 mmol/L (137-145); TOTAL PROTEIN 8.1 g/dL (6.3-8.2)
[2017-04-06] MEDS ORDERED: NORMAL SALINE 500 ML IV ONE (22:28)
[2017-04-06] MEDS ORDERED: KETOROLAC TROMETHAMINE INJ/PF 30 MG/1 ML SDV IV ONE (22:28)
--- NOTE | 2017-04-06 23:07 | ER Document Report ---
ED General - General Chief Complaint: Altered Mental Status Stated Complaint: POSSIBLE LOSS OF MEMORY Time Seen by Provider: 04/06/17 19:46 Notes: Patient is a 66-year-old female who presents with complaint of some loss of memory today. Yesterday she felt fine had no loss of memory. Today she has had a slight headache. She feels like pressure to her sinuses and her forehead. This is very typical presentation she has with her previous migraines. She also started to have some memory loss today and still having some short-term memory loss as well. She has no long-term memory loss. She denies any focal weakness or numbness into extremities. No facial droop. No difficulty talking. She had an exact similar presentation back in February. At time she was admitted and stroke workup was completely negative and she was diagnosed with complex migraines. Patient says this feels exactly like her episode she had February. She denies any trauma injuries to her head. No recent fevers or infections. No other complaints at this time. The only medications patient takes are pravastatin and aspirin. TRAVEL OUTSIDE OF THE [place] IN LAST 30 DAYS: No - Related Data Allergies/Adverse Reactions: risedronate sodium [From Actonel] Allergy (Verified 04/06/17 19:17) steriods Allergy (Uncoded 03/05/17 13:32) Past Medical History - Social History Smoking Status: Never Smoker Chew tobacco use (# tins/day): No Frequency of alcohol use: None Drug Abuse: None Family History: Reviewed & Not Pertinent Neurological Medical History: Reports: Hx Migraine Renal/ Medical History: Denies: Hx Peritoneal Dialysis Malignancy Medical History: Reports: Hx Ovarian Cancer - Status post chemo and surgery Psychiatric Medical History: Denies: Hx Depression Past Surgical History: Reports: Hx Cardiac Catheterization, Hx Gynecologic Surgery, Hx Hysterectomy, Hx Tonsillectomy - Immunizations Hx Diphtheria, Pertussis, Tetanus Vaccination: No Review of Systems - Review of Systems Notes: My Normal Review Basic REVIEW OF SYSTEMS: CONSTITUTIONAL : Denies fever, chills, or sweats. Denies recent illness. EENT: Denies eye, ear, throat, or mouth pain or symptoms. Denies nasal or sinus congestion. CARDIOVASCULAR: Denies chest pain. RESPIRATORY: Denies cough, cold, or chest congestion. Denies shortness of breath, difficulty breathing, or wheezing. GASTROINTESTINAL: Denies abdominal pain. Denies nausea, vomiting, or diarrhea. Denies constipation. Last BM: GENITOURINARY: Denies difficulty urinating, painful urination, burning, frequency, or blood in urine. MUSCULOSKELETAL: Denies neck or back pain or joint pain or swelling. SKIN: Denies rash or skin lesions. NEUROLOGICAL: Some short term memory loss. mild headache. Denies weakness or paralysis or loss of use of either side. Denies problems with gait or speech. Denies sensory or motor loss. ALL OTHER SYSTEMS REVIEWED AND NEGATIVE. Physical Exam - Vital signs Vitals: Temp Pulse Resp BP Pulse Ox 98.6 F 88 16 162/82 H 100 04/06/17 19:13 04/06/17 19:13 04/06/17 19:13 04/06/17 19:13 04/06/17 19:13 - Notes Notes: General Appearance: Well nourished, alert, cooperative, no acute distress, no obvious discomfort. Patient is laughing and upbeat and very well-appearing. Vitals: reviewed, See vital signs table. Head: no swelling or tenderness to the head Eyes: PERRL, EOMI, Conjuctiva clear Mouth: No decreasd moisture Neck: Supple, no neck tenderness, No thyromegaly Lungs: No wheezing, No rales, No rhonci, No accessory muscle use, good air exchange bilaterally. Heart: Normal rate, Regular rythm, No murmur, no rub Abdomen: Normal BS, soft, No rigidity, No abdominal tenderness, No guarding, no rebound, no abdominal masses, no organomegaly Extremities: strength 5/5 in all extremities, good pulses in all extremities, no swelling or tenderness in the extremities, no edema. Skin: warm, dry, appropriate color, no rash Neuro: speech clear, oriented x 3, normal affect, responds appropriately to questions. Renal nerves II through XII are intact. Distal sensation intact. Patient moves all extremities without difficulty. Patient is able lift both legs off the bed and keep them in the air. Patient is able to lift both arms off the bed and keep them in the air against gravity without difficulty. Good strength with plantar dorsiflexion against resistance. Bilateral equal wool washer feeder strength. Normal coordination of movements. Normal gait. Normal Romberg. Course - Re-evaluation Re-evalutation: 04/06/17 23:52 On reevaluation patient is well appearing and she says that her memory is improving. Her family is in the room and says that her memory is significantly improving now she is getting back to her normal self. I did talk to him at length. I suspect that this is related to complex migraines like it was back in February. Her memory trouble seem to improving as her migraine improved after receiving the Toradol. She has no other neurologic deficits. She just recently had carotid Dopplers and echo which were normal. I feel she is safe to be discharged home. I informed him that she must return to ER immediately if she has any recurrence of memory troubles, worsening memory troubles, any focal weakness or numbness, or she feels unwell. Patient agrees with plan and will be discharged home. Dictation of this chart was performed using voice recognition software; therefore, there may be some unintended grammatical errors. - Vital Signs Vital signs: Temp Pulse Resp BP Pulse Ox 98.6 F 88 16 162/82 H 100 04/06/17 19:13 04/06/17 19:13 04/06/17 19:13 04/06/17 19:13 04/06/17 19:13 - Laboratory Result Diagrams: 04/06/17 20:30 04/06/17 20:30 Laboratory results interpreted by me: 04/06/17 04/06/17 04/06/17 20:30 20:30 20:30 Seg Neutrophils % 82.6 H Lymphocytes % 12.2 L Absolute Neutrophils 8.4 H Sodium 146.2 H BUN 27 H Glucose 115 H Ur Leukocyte Esterase TRACE H Discharge - Discharge Clinical Impression: Memory loss Migraine Qualifiers: Migraine type: unspecified Status migrainosus presence: without status migrainosus Intractability: not intractable Qualified Code(s): G43.909 - Migraine, unspecified, not intractable, without status migrainosus Condition: Good Disposition: HOME, SELF-CARE Additional Instructions: Please return to the ER immediately if you develop fevers, worsening headaches, worsening memory troubles, or any focal weakness or numbness of your arms or legs. I suspect your memory loss is related to complex migraines. The medication we gave you is called Toradol. Pelase follow up with your doctor in 2 days for reevaluation. If you memory is not full back to normal within 24 hours you should return to the ER. Referrals: MASOOD MUELLER MD [Primary Care Provider] - 04/08/17
[2017-04-06 23:58] VITALS: BP 160/80
== END 2017-04-07 00:03 | disposition home or self-care (01) ==
LOC: ER 19:11
DX: G43.909 Migraine, unspecified, not intractable, without status migrainosus (principal); R41.3 Other amnesia; R41.82 Altered mental status, unspecified
CPT/HCPCS: 99285; 96374; 36415; 85025; 80053; 81001; 70450; J1885

== ENCOUNTER → 2017-05-10 | Outpatient (CLI) | payer OTHER | LOC: WI 08:34 | PROVIDERS: ATTEND Physician Assistant Medical | DX: Z12.31 Encounter for screening mammogram for malignant neoplasm of breast (principal) | CPT/HCPCS: 77067; G0202 ==

== ENCOUNTER → 2017-05-31 | Outpatient (CLI) | payer OTHER ==
--- NOTE | 2017-05-31 12:50 | WOMENS IMAGING REPORT ---
EXAM DESCRIPTION: 3D DX MAMMO LEFT UNILAT COMPLETED DATE/TIME: 05/31/2017 11:50 am REASON FOR STUDY: CALCIFICATIONS; R92.0 R92.8 OTH ABN AND INCONCLUSIVE FINDINGS ON DX IMAGING OF BR E COMPARISON: 05/10/2017, 01/27/2015, and 01/04/2014. TECHNIQUE: Additional true lateral and magnification lateral and CC images and MLO, cc, and lateral tomosynthesis images acquired. LIMITATIONS: None. FINDINGS: BREAST: left MASSES: No suspicious masses. CALCIFICATIONS: Few small punctate and relatively circumscribed calcifications. No pleomorphic appea armond. ARCHITECTURAL DISTORTION: None. DEVELOPING DENSITY: None. ASYMMETRY: None noted. OTHER: No other significant findings. IMPRESSION: A few small calcifications with no particularly worrisome characteristics. These appear to have been present on the older mammograms, although not as well visualized due to breast density and mammographic technique. BREAST DENSITY: c. The breasts are heterogeneously dense, which may obscure small masses. BIRAD: 2 Benign findings. RECOMMENDATION: RECOMMENDED FOLLOW UP: Birads 1 or 2: The patient should resume routine screening . SPECIFIC INTERVENTION/IMAGING/CONSULTATION RECOMMENDED:No additional intervention/ imaging/consultati on needed at this time. COMMUNICATION:The negative/benign results were communicated to the patient. COMMENT: The patient has been notified of the results by letter per SA requirements. Additional no tification policies are in place for contacting patient with suspicious or incomplete findings. Quality ID #225: The [employer] recommends an annual screening mammogram for women aged 40 years or over. This facility utilizes a reminder system to ensure that all patients receive reminder letters, and/or direct phone calls for appointments. This includes reminders for routine scr eening mammograms, diagnostic mammograms, or other Breast Imaging Interventions when appropriate. Th is patient will be placed in the appropriate reminder system. The [employer] (ACR) has developed recommendations for screening MRI of the breast s in certain patient populations, to be used in conjunction with mammography. Breast MRI surveillanc e may be appropriate for women with more than 20% lifetime risk of developing breast cancer as deter mined by genetic testing, significant family history of the disease, or history of mantle radiation f or Hodgkins Disease. ACR Practice Guidelines 2008. DBT Technology DBT is a type of tomographic mammography. With conventional mammography, overlapping breast tissue ma y make lesions difficult to detect, even with good compression. DBT uses an x-ray tube that rotates a round the breast, taking images at different angles. These images are then combined to create thin sl ices of the breast that the radiologist can view as a 3D reconstruction. The [employer] unit can perform full-field digital mammograms (2D imaging); or DBT (3D imaging); or both, in a combination mode that quickly performs both the mammogram and the tomosynthesis scan while the breast is still compressed. PQRS 6045F: Fluoroscopic imaging is not utilized for breast tomosynthesis. TECHNICAL DOCUMENTATION: FINDING NUMBER: (1) ASSESSMENT: (1) JOB ID: [id number] [employer]- All Rights Reserved
== END ==
LOC: RAD 11:18
PROVIDERS: ATTEND Physician Assistant Medical
DX: R92.8 Other abnormal and inconclusive findings on diagnostic imaging of breast (principal)
CPT/HCPCS: G0279; G0206

== ENCOUNTER → 2018-05-12 | Outpatient (CLI) | payer OTHER | LOC: WI 09:56 | PROVIDERS: ATTEND Family Medicine | DX: Z12.31 Encounter for screening mammogram for malignant neoplasm of breast (principal) | CPT/HCPCS: 77067 ==

== ENCOUNTER → 2019-05-22 | Outpatient (CLI) | payer OTHER ==
--- NOTE | 2019-05-22 15:33 | WOMENS IMAGING REPORT ---
EXAM DESCRIPTION: 3D SCREENING MAMMO BILAT COMPLETED DATE/TIME: 05/22/2019 2:38 pm REASON FOR STUDY: Z12.31 SCREENING MAMMO Z12.31 ENCNTR SCREEN MAMMOGRAM FOR MALIGNANT NEOPLASM OF B RE COMPARISON: [id number] EXAM PARAMETERS: Views: Standard craniocaudal and mediolateral oblique views of each breast recorded using digital acquisition and breast tomosynthesis. Read with the assistance of CAD. .[facility] - [employer] Supervisor Version 9.2 LIMITATIONS: None. FINDINGS: No suspicious masses, suspicious calcifications or architectural distortion. No areas of c oncern. IMPRESSION: NEGATIVE MAMMOGRAM. BIRADS 1. BREAST DENSITY: b. There are scattered areas of fibroglandular density. BIRAD: ASSESSMENT: 1 NEGATIVE RECOMMENDATION: ROUTINE SCREENING COMMENT: The patient has been notified of the results by letter per MQSA requirements. Additional no tification policies are in place for contacting patient with suspicious or incomplete findings. Quality ID #225: The [employer] recommends an annual screening mammogram for women aged 40 years or over. This facility utilizes a reminder system to ensure that all patients receive reminder letters, and/or direct phone calls for appointments. This includes reminders for routine scr eening mammograms, diagnostic mammograms, or other Breast Imaging Interventions when appropriate. Th is patient will be placed in the appropriate reminder system. TECHNICAL DOCUMENTATION: FINDING NUMBER: (1) ASSESSMENT: (1) JOB ID: [id number] [employer]- All Rights Reserved Reading location - IP/workstation name: [email or web address]
== END ==
LOC: WI 14:29
PROVIDERS: ATTEND Family Medicine
DX: Z12.31 Encounter for screening mammogram for malignant neoplasm of breast (principal)
CPT/HCPCS: 77063; 77067

== ENCOUNTER → 2020-05-26 | Outpatient (CLI) | payer OTHER ==
--- NOTE | 2020-05-28 09:14 | WOMENS IMAGING REPORT ---
EXAM DESCRIPTION: 3D SCREENING MAMMO BILAT IMAGES COMPLETED DATE/TIME: 05/26/2020 1:26 pm REASON FOR STUDY: ROUTINE SCREENING MAMMOGRAM Z12.31 Z12.31 ENCNTR SCREEN MAMMOGRAM FOR MALIGNANT N EOPLASM OF KHOA COMPARISON: 05/22/2019, 05/12/2018, 05/31/2017, 05/10/2017 EXAM PARAMETERS: Views: Standard craniocaudal and mediolateral oblique views of each breast recorded using digital acquisition and breast tomosynthesis. Read with the assistance of CAD. .[facility] - [employer] Version 9.2 LIMITATIONS: None. FINDINGS: No suspicious masses, suspicious calcifications or architectural distortion. No areas of c oncern. IMPRESSION: NEGATIVE MAMMOGRAM. BIRADS 1. BREAST DENSITY: c. The breasts are heterogeneously dense, which may obscure small masses. BIRAD: ASSESSMENT: 1 NEGATIVE RECOMMENDATION: ROUTINE SCREENING COMMENT: The patient has been notified of the results by letter per MQSA requirements. Additional no tification policies are in place for contacting patient with suspicious or incomplete findings. Quality ID #225: The [employer] recommends an annual screening mammogram for women aged 40 years or over. This facility utilizes a reminder system to ensure that all patients receive reminder letters, and/or direct phone calls for appointments. This includes reminders for routine scr eening mammograms, diagnostic mammograms, or other Breast Imaging Interventions when appropriate. Th is patient will be placed in the appropriate reminder system. TECHNICAL DOCUMENTATION: FINDING NUMBER: (1) ASSESSMENT: (1) JOB ID: [id number] 2010 [employer]- All Rights Reserved Reading location - IP/workstation name: [email or web address]
== END ==
LOC: WI 12:55
PROVIDERS: ATTEND Family Medicine
DX: Z12.31 Encounter for screening mammogram for malignant neoplasm of breast (principal)
CPT/HCPCS: 77063; 77067